=== PATIENT | female | born 2000 | race Caucasian/White ===

== ENCOUNTER 2021-06-12 21:19 | Emergency (ER) | payer OTHER ==
[2021-06-13] MEDS ORDERED: OMNICEF 300 MG300 MG PO (02:28)
[2021-06-13] MEDS ORDERED: NORFLEX 100 MG100 MG PO (02:28)
[2021-06-13] MEDS ORDERED: IBUPROFEN600 MG PO (02:28)
== END 2021-06-13 02:45 | disposition home or self-care (01) ==
LOC: ER1 21:19 → EDBD 21:19 → ER1 06-13 02:45
DX: S39.012A Strain of muscle, fascia and tendon of lower back, initial encounter (principal); N39.0 Urinary tract infection, site not specified; J45.909 Unspecified asthma, uncomplicated; Z88.6 Allergy status to analgesic agent; V43.52XA Car driver injured in collision with other type car in traffic accident, initial encounter; Y92.410 Unspecified street and highway as the place of occurrence of the external cause
CPT/HCPCS: 72131; 81001; 84703; 99284